=== PATIENT | male | born 1960 | race Caucasian/White ===

== ENCOUNTER → 2017-07-18 | Day surgery (SDC) | payer MEDICARE ==
[~2017-07-18] MED LIST: CLOZ100T7 PO; HYDR25TA PO; IV RINGERS,LACTATED 1000ML 1,000 ML IV ONE; LOSA50TA6 PO; METO-269 PO; PROPOFOL 40 ML IV ONE
--- NOTE | 2017-07-18 09:35 | PDOC1 ---
HISTORY & PHYSICAL H&P Juan David Pulido 1960 06/14/2017 03:00 PM 11/06 [employer] [facility], [facility] OUR PATIENTS COME FIRST [address] [place] [address] Ph. [phone] Patient: Juan David Pulido Date of : 1960 Date: 06/14/2017 3:00 PM Visit Type: Consult This 57 year old male presents for H/o colorectal polyp. History of Present Illness: 1. H/o colorectal polyp Prior screening: colonoscopy. Risk Factors: h/o colon polyp. Pertinent negatives include abdominal pain, change in bowel habits, change in stool caliber, constipation, decreased appetite, diarrhea, melena, nausea, rectal bleeding, vomiting, weight gain and weight loss. Additional information: No family history of colon cancer, No family history of Crohn's/colitis, No NSAID/ ASA use and Last colonoscopy 5 yrs ago. INTAKE COMMENTS: Intake Comments: Nurse Note: the pt is here today to schedule a colonoscopy due to colon polyps in 2013. 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 Schizoaffective disorder 07/28/2014 Colonic polyps 07/28/2014 Cellulitis of face 03/23/2016 Insect bite of face, initial encounter ^ 03/16/2016 Benign essential hypertension 06/13/2012 PAST MEDICAL/SURGICAL HISTORY (Detailed) Disease/disorder Onset Date Management Date Comments Tonsillectomy Colonic polyps x2 06/29/2012 colonoscopy with biopsy 06/29/2012 Hypertension Polycythemia vera rubra Schizoaffective disorder DIAGNOSTICS HISTORY: Test Ordered Interpretation Result completed Colonoscopy 06/13/2012 abnormal Imp: polyps in the transverse colon(bx), polyps in the sigmoid colon(bx), BX: focal serrated surface epithelium, suggestive of a hyperplastic polyp, five fragments of hyperplastic polyp. 06/29/2012 Test Ordered Ordering Comments Modifier Colonoscopy 06/13/2012 Medications (Active): Started Medication Directions Instruction Stopped 06/30/2011 clozapine 100 mg Tab take 3 tablet (100MG) by oral route 2 times every day 06/30/2011 hydroxyzine 25 mg Tab take 1 (25MG) by oral route 2 times every day 06/13/2017 losartan 50 mg tablet take 1 tablet (50MG) by oral route every day 09/06/2016 metoprolol succinate ER 50 mg tablet,extended release 24 hr take 1 tablet (50MG) by oral route every day 09/28/2011 multivitamin Tab take 1 tablet by oral route every day with food Allergies: Ingredient Reaction Medication Name Comment NO KNOWN ALLERGIES REVIEW OF SYSTEMS System Neg/Pos Details Constitutional Negative Chills, fever, malaise, weight gain and weight loss. ENMT Negative Sore throat. Eyes Negative Double vision. Respiratory Negative Dyspnea and wheezing. Cardio Negative Chest pain and irregular heartbeat/palpitations. GI Positive See HPI. GI Negative Abdominal pain, change in bowel habits, change in stool caliber, constipation, decreased appetite, diarrhea, melena, nausea, see HPI, rectal bleeding and vomiting. Negative Dysuria and hematuria. Endocrine Negative Cold intolerance and heat intolerance. Psych Negative Anxiety. Integumentary Negative Hives and rash. MS Negative Joint pain. Mikhail/Lymph Negative Easy bleeding and easy bruising. Allergic/Immuno Negative Animals at home and food allergies. VITAL SIGNS Time BP mm/Hg Pulse /min Resp /min Temp F Ht ft Ht in Ht cm Wt lb Wt kg BMI kg/ m2 BSA m2 O2 Sat% 3:09 PM 102 98.1 6.0 0.00 182.88 199.00 90.265 26.99 96 Time Measured by 3:09 PM Aaliyah Dallas PHYSICAL EXAM: Exam Findings Details Constitutional Normal Well developed. Eyes Normal Conjunctiva - Right: Normal, Left: Normal. Sclera - Right: Normal, Left: Normal. Nasopharynx Normal Lips/teeth/gums - Normal. Neck Exam Normal Inspection - Normal. Thyroid gland - Normal. Respiratory Normal Inspection - Normal. Auscultation - Normal. Cardiovascular Normal Regular rate and rhythm. No murmurs, gallops, or rubs. Vascular Normal Pulses - Carotids: Normal, Femoral: Normal, Dorsalis pedis: Normal. Abdomen Normal Inspection - Normal. Anterior palpation - No guarding. No abdominal tenderness. No hepatic enlargement. No splenic enlargement. No hernia. No ascites. Skin Normal Inspection - Normal. Extremity Normal No edema. Psychiatric * Oriented to time, place, person and situation. Psychiatric Normal Appropriate mood and effect. Assessment/Plan # Detail Type Description 1. Assessment History of colon polyps (Z86.010). [place] [facility] [place] Further diagnostic evaluations ordered today include(s) Colonoscopy to be performed today. He is to schedule a follow-up visit with Antoine Ruiz MD upon completion of work-up Electronically signed by: Antoine Ruiz MD 06/14/2017 03:22 PM Document generated by: Antoine Ruiz 06/14/2017 03:22 PM Haseeb Matos MD, [facility]; Aleksandr Barragan MD Internal Medicine; Salvador Callahan MD, Internal Medicine; Judy Ruiz MD Internal Medicine; Antoine Ruiz MD, Gastroenterology; Jatin Botello MD, Rheumatology, S. Mark Small, Physical Medicine/Rehab J. Kymberly TREVINON ------ 07/18/17 Patient seen and examined. No change in H&P. ANTOINE RUIZ MD Jul 18, 2017 09:35
[2017-07-18 11:09] VITALS: BP 124/76
--- NOTE | 2017-07-19 10:53 | PATHOLOGY ---
PATHOLOGY REPORT * * * * * * * * FINAL DIAGNOSIS: Colonic mucosa "sigmoid biopsy": - Fragments of hyperplastic polyps with focal early adenomatous change. - There is no evidence of high grade dysplasia or malignancy. (HERMINIA:raj; 07/19/2017) REPORT ELECTRONICALLY SIGNED BY: Rolando Membreno M.D. DATE/TIME: 07/19/2017 10:52 * * * * * * * * GROSS PATHOLOGY: Received in formalin labeled "Juan David Pulido, sigmoid biopsy," are multiple segments of og soft tissue measuring from 0.1 up to 0.3 cm in maximum dimension. The specimen is submitted entirely in cassette A1. (JPM; 07/18/17) INITIAL CPT CODE(S): A; 90913 Professional services [place] [address] Technical services performed by [facility] at [address] [place] [address]. SPECIMEN(S) RECEIVED: A.Sigmoid biopsy CLINICAL HISTORY: History of polyps PATIENT: JUAN DAVID PULIDO /AGE: 4 1960 (Age: 57) PATIENT #: [id number] ALT CASE #: SPECIMEN COLLECTION DATE: 07/18/2017 SPECIMEN RECEIVED DATE: 07/18/2017 [facility] - [address] [place] [address] - PHONE: [phone] * * * END OF REPORT * * *
== END | disposition home or self-care (01) ==
LOC: ENDOS 09:19
PROVIDERS: ATTEND Internal Medicine Gastroenterology
DX: Z09 Encounter for follow-up examination after completed treatment for conditions other than malignant neoplasm (principal); D12.5 Benign neoplasm of sigmoid colon; Z87.19 Personal history of other diseases of the digestive system; I10 Essential (primary) hypertension; J44.9 Chronic obstructive pulmonary disease, unspecified; Z72.0 Tobacco use
CPT/HCPCS: 45380; 88305; J2704

== ENCOUNTER 2018-12-27 11:08 | Observation (INO) | payer MEDICARE ==
[~2018-12-27] VITALS: Ht 182.9 cm; Wt 90.7 kg
[2018-12-27] VITALS (8 sets, daily range): BP systolic 124–136; BP diastolic 80–85
[~2018-12-27 11:08] MED LIST changes: +HYDROmorphone 2 MG/ML VIAL IV PRN; -IV RINGERS,LACTATED 1000ML 1,000 ML IV ONE; +IV RINGERS,LACTATED 1000ML 1,000 ML IV SCH; +LIDOCAINE 1% PF 2 ML VIAL. ID PRN; +LOSA-73 PO; -LOSA50TA6 PO; +MORPHINE SULFATE 4 MG/ML VIAL. IV PRN; +ONDANSETRON PF 4 MG/2 ML VIAL. IV PRN; +PROCHLORPERAZINE 10 MG/2 ML VIAL. IV PRN; -PROPOFOL 40 ML IV ONE; +fentaNYL PF VIAL 100 MCG/2 ML VIAL IV PRN
[2018-12-27] MEDS ORDERED: ONDANSETRON PF 4 MG/2 ML VIAL. ONE (11:27)
[2018-12-27] MEDS ORDERED: DEXAMETHASONE SOD PHOS 20 MG/5 ML VIAL. ONE (11:27)
[2018-12-27] MEDS ORDERED: PROPOFOL 40 ML IV ONE (11:27)
[2018-12-27] MEDS ORDERED: MIDAZOLAM HCL/PF 2 MG/2 ML VIAL. ONE (11:27)
[2018-12-27] MEDS ORDERED: LIDOCAINE 1% PF 5 ML VIAL. ONE (11:28)
[2018-12-27] MEDS ORDERED: 0.9 % SODIUM CHLORIDE 20 ML VIAL. IJ ONE ×3 (11:35→12:21)
[2018-12-27] MEDS ORDERED: GLYCOPYRROLATE 1 MG/5 ML VIAL. ONE (11:37)
[2018-12-27] MEDS ORDERED: PROPOFOL 100 ML IV ONE (11:55)
[2018-12-27] MEDS ORDERED: REMIFENTANIL 2 MG VIAL. IV ONE (11:56)
[2018-12-27] MEDS ORDERED: LIDOCAINE 1%/EPI 1:100,000 20 ML VIAL. ONE (12:04)
[2018-12-27] MEDS ORDERED: EPINEPHrine VIAL 30 MG/30 ML VIAL ONE (12:04)
[2018-12-27] MEDS ORDERED: SUCCINYLCHOLINE 200 MG/10 ML VIAL. ONE (12:48)
[2018-12-27] MEDS ORDERED: VASOPRESSIN 20 UNIT/ML VIAL. ONE (13:19)
[2018-12-27] MEDS ORDERED: NEOMY/BACITR/POLYMYXIN OINT PACKET. TP ONE ×2 (15:00→15:15)
[2018-12-27] MEDS: IV NORMAL SALINE 1000ML BAG 1,000 ML IV SCH (15:52)
--- NOTE | 2018-12-27 15:52 | PDOC4 ---
IMMEDIATE POST OP NOTE Pre-Op Diagnosis right parotid mass Post-Op Diagnosis same as above Procedure Performed excision of right parotid mass with dissection of facial nerve Surgeon Dr. Pia Ramos Sheeter Helper none Anesthesiologist Dr. Smith Anesthesia Type: General Blood Loss 20mL Specimens Obtained 1. Right parotid mass Findings 1. 2cm mass extending from tail of parotid gland anteriorly. Mental branch of right facial nerve identified and dissected away from mass Complications none Operative Note #[id number] PIA RAMOS MD Dec 27, 2018 15:52
[2018-12-27] MEDS ORDERED: ONDANSETRON PF 4 MG/2 ML VIAL. IV PRN (16:00)
[2018-12-27] MEDS ORDERED: diphenhydrAMINE 50 MG/ML VIAL IV PRN (16:00)
[2018-12-27] MEDS ORDERED: NALOXONE 0.4 MG/ML VIAL. IV PRN (16:00)
[2018-12-27] MEDS ORDERED: diphenhydrAMINE HCL 25 MG CAPSULE PO PRN (16:00)
[2018-12-27] MEDS ORDERED: oxyCODONE/APAP 5/325 1 TAB TABLET PO PRN ×2 (16:00)
[2018-12-27] MEDS ORDERED: MORPHINE SULFATE 4 MG/ML VIAL. IV PRN (16:00)
[2018-12-27] MEDS ORDERED: 0.9 % SODIUM CHLORIDE 10 ML DISP.SYRIN. IV PRN (16:00)
[2018-12-27] MEDS ORDERED: ACETAMINOPHEN 325 MG TABLET. PO PRN (16:00)
[2018-12-27] MEDS ORDERED: METOCLOPRAMIDE HCL 10 MG/2 ML VIAL. IV PRN (16:00)
[2018-12-27] MEDS ORDERED: MAGNESIUM HYDROXIDE 2,400 MG/30 ML ORAL.SUSP. PO PRN (16:00)
[2018-12-27] MEDS ORDERED: CALCIUM CARBONATE 500 MG TAB.CHEW PO PRN (16:00)
[2018-12-27] MEDS ORDERED: MAG HYDROX/ALUMINUM HYD/SIMETH 30 ML ORAL.SUSP PO PRN (16:00)
[2018-12-27] MEDS ORDERED: hydrOXYzine 10 MG TABLET PO PRN (16:15)
--- NOTE | 2018-12-27 16:29 | OP ---
DATE OF SURGERY: 12/27/2018 PREOPERATIVE DIAGNOSIS: Right parotid mass. POSTOPERATIVE DIAGNOSIS: Right parotid mass. PROCEDURE PERFORMED: Excision of right parotid mass with dissection of the facial nerve. SURGEON: Pia Ramos MD. ANESTHESIA: General endotracheal anesthesia. ANESTHESIOLOGIST: Kishore Smith MD. ESTIMATED BLOOD LOSS: 20 mL. INDICATIONS FOR SURGERY: The patient is a 58-year-old male with a 6-month history of an enlarging right parotid neck mass. CT imaging showed mass with mixed solid and cystic components extending from the right parotid tail. 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 The decision made for the patient to undergo the above procedure after risks, benefits, alternatives to the surgery were thoroughly discussed with the patient and informed consent was obtained. INTRAOPERATIVE FINDINGS: A 2 cm mass extending from the tail of the parotid gland anteriorly on the right side. The mental branch of the right facial nerve was identified and dissected away from the mass safely. SPECIMEN: Right parotid mass was sent for permanent pathology. DESCRIPTION OF THE PROCEDURE: The patient was brought back to the operating room per anesthesia and intubated in standard fashion. The patient was then turned 90 degrees in the room. The facial nerve monitor was set up and used throughout the case to protect the facial nerve. This was verified for accuracy. A planned modified Dandy's incision in the patient's right neck and this was injected in a subcutaneous fashion with 1% lidocaine with 1:100,000 epinephrine. The patient was then prepped and draped in standard fashion. A 15 blade was used to make the incision along the inferior portion of the planned incision in the neck. I did extend this to the postauricular area to the anterior lobule. I did not open up the planned incision anterior to the ear at this time. The skin and subplatysmal layers were elevated with sharp dissection as well as Bovie electrocautery both inferiorly and anteriorly and I then used nylon silk to retract the skin flaps to keep the incision open. I identified the great auricular nerve and the sternocleidomastoid musculature and I carefully dissected the parotid tail away from this inferiorly. I continued to dissect along the inferior border of the parotid gland and I continued my dissection anteriorly and once I dissected anteriorly, I identified this palpable parotid mass attached to the anterior aspect of the parotid tail. I carefully dissected around the parotid mass and the attached fat and along the border of the mandible, I identified the mentalis branch of the facial nerve. I confirmed this location with the facial nerve monitor. I then carefully dissected using bipolar electrocautery, dissected and I continued to identify the entire length of the mentalis nerve posteriorly into the parotid tail until it was retracted superiorly. I then carefully dissected the mass in the inferior portion of the parotid tail away from the remaining parotid gland using bipolar electrocautery when I was near the nerve and LigaSure cautery elsewhere. Once the mass in the parotid tail was completely dissected away from the surrounding tissue, I examined this on the back table. This mass was firm and freely mobile and this was sent for permanent pathology. I then thoroughly irrigated the wound. The majority of the superior aspect of the parotid gland both superficial and deep were left intact. The mentalis branch of the facial nerve was again identified and stimulated at the end of the case. I thoroughly irrigated the wound. A 10-Swedish fully fluted drain was placed within the surgical bed. This was brought out through a stab incision inferior to my incision and sutured to the skin using 2-0 silk suture. The surgical wound was then closed with buried deep dermal sutures of 4-0 Vicryl and I closed the skin layer with a running horizontal mattress suture of 5-0 Prolene. Triple antibiotic ointment was then placed along the incision. The patient was turned back over to Anesthesia and extubated without complication. Our sponge, needle and instrument counts were correct at the end of the case. COMPLICATIONS: None. DISPOSITION: Stable and transferred to recovery room. PIA RAMOS MD DR: TAO/isaac JOB#: [id number] / [id number] SUDEEP
[2018-12-27] MEDS ORDERED: cloZAPine 100 MG TABLET PO SCH (21:00)
[2018-12-27] MEDS ORDERED: MUPIROCIN 2 % NASAL OINTMENT 22GM TUBE. TP SCH (21:00)
[2018-12-27] MEDS ORDERED: DOCUSATE SODIUM 100 MG CAPSULE. PO SCH (21:00)
--- NOTE | 2018-12-27 23:45 | NUR ---
RN paged Dr. Ramos to get a sleeping aid. MD called back and orders were received.
[2018-12-28] MEDS ORDERED: ZOLPIDEM 5 MG TABLET. PO ONE
[2018-12-28] MEDS: IV NORMAL SALINE 1000ML BAG 1,000 ML IV SCH (01:52)
[2018-12-28 02:43] VITALS: BP 120/84
[2018-12-28 07:00] VITALS: BP 134/92
[2018-12-28] MEDS ORDERED: MUPI22OI2 TP (08:17)
[2018-12-28] MEDS ORDERED: OXYC1TAB15 PO (08:17)
--- NOTE | 2018-12-28 08:46 | NUR ---
Discharge instructions reviewed with patient and his sister Yoni, verbalized understanding, patient was escorted out of hospital via wheelchair by Rigo ADAMS accompanied by his sister Yoni.
[2018-12-28] MEDS ORDERED: LOSARTAN POTASSIUM 50 MG TABLET. PO SCH (09:00)
[2018-12-28] MEDS ORDERED: METOPROLOL SUCC 24HR ER 50 MG TAB.ER.24H. PO SCH (09:00)
--- NOTE | 2018-12-31 17:07 | PATHOLOGY ---
[facility] Accession Number: [id number] . 01 Material submitted: . RIGHT PAROTID MASS . 01 Clinical history: . None provided . 02 Diagnosis: Segment of parotid gland with attached fibroadipose and focal skeletal muscle tissue, excision: - Warthin tumor (Papillary cystadenoma lymphomatosum). - Reactive changes of periparotid lymph nodes. (JPM:rebecca; 12/31/2018) QMS/12/31/2018 . 02 Comment: Sections of the right parotid mass reveal a Warthin tumor (Papillary cystadenoma lymphomatosum). The tumor appears well circumscribed and is narrowly excised with tumor present just beneath the inked margin (less than 1 mm). There are reactive changes of periparotid lymph nodes. There is no evidence of malignancy. (JPM:rebecca; 12/31/2018) . 02 Electronically signed: . Joshua Vargas MD, Pathologist NPI- [id number] . 01 Gross description: . The specimen is received in formalin, labeled "Juan David Pulido, right parotid mass", is an irregular, disrupted, rubbery fragment weighing 6 g and measuring 4 x 2.6 x 1.4 cm. The specimen is inked black, serially sectioned to show a og-white, soft cut surface consisting of a probable purulent material. The uninvolved parenchyma is og-brown, lobulated. The specimen is entirely submitted in A1-A5. ([facility]; 12/28/2018) . SHS/SHS . 02 Pathologist provided ICD-10: D11.0 . 02 CPT . 713889 Specimen Comment: A courtesy copy of this report has been sent to Specimen Comment: [phone], . Specimen Comment: Report sent to / DR REYNOLDS Specimen Comment: A duplicate report has been generated due to demographic updates. Performed at: 01 [facility] [address] [id number] MD Gamaliel Dozier MD Phone: [phone] Performed at: 02 [facility] [address] [place], [place] [id number] MD Joshua Vargas MD Phone: [phone]
== END 2018-12-28 08:49 | disposition home or self-care (01) ==
LOC: SURG 11:08 → 4 NORTH 16:18
PROVIDERS: ADMIT Otolaryngology; ATTEND Otolaryngology
DX: K11.6 Mucocele of salivary gland (principal); R22.1 Localized swelling, mass and lump, neck; J44.9 Chronic obstructive pulmonary disease, unspecified; D49.0 Neoplasm of unspecified behavior of digestive system; J43.9 Emphysema, unspecified; J70.4 Drug-induced interstitial lung disorders, unspecified
CPT/HCPCS: 42415; 88307; 96365; 96366; A7015; G0378; G0379; J0330; J0696; J1100; J2250; J2704; J3490; J7120; J0171; J2405; A4461